=== PATIENT | female | born 1985 | race Caucasian/White ===

== ENCOUNTER 2021-04-24 21:34 | Emergency (ER) | payer MEDICAID, SELFPAY ==
[2021-04-24 21:34] VITALS: BP 130/84; PULSE 85; RESP 22; TEMP 36.9; BMI 24.8
== END 2021-04-24 22:10 | disposition left against medical advice (07) ==
LOC: ED 22:18
PROVIDERS: PCP Family Medicine
DX: R11.2 Nausea with vomiting, unspecified (principal); Z53.21 Procedure and treatment not carried out due to patient leaving prior to being seen by health care provider

== ENCOUNTER 2021-04-26 19:33 | Emergency (ER) | payer MEDICAID, SELFPAY ==
[2021-04-26 19:34] VITALS: BP 99/75; PULSE 75; RESP 16; TEMP 36.6; O2SAT 100; BMI 25.0
[2021-04-26 20:13] LABS: Internal QC Validated? YES +Cl - CLEAR BKGD; Pregnancy, Serum, hCG Quali. NEGATIVE Negative
[2021-04-26 20:15] LABS: Anion Gap 6 (5-15); BUN 12 mg/dL (7-18); BUN/Creat Ratio 20.5 RATIO (10-20); Calcium,Total 8.9 mg/dL (8.5-10.1); Chloride 104 mmol/L (98-107); Creatinine, Serum 0.58 mg/dL (0.55-1.02); EST Glomerular Filtration Rate 123 mL/min (>60); Est Glom Filt Rate - Afr Amer 148 mL/min (>60); Estimated Creatinine Clearance 123.12 ml/min; Glucose 114 mg/dL (74-106); Potassium 3.8 mmol/L (3.5-5.1); Sodium Level 141 mmol/L (136-145)
[2021-04-26 20:20] LABS: Absolute Lymphocyte Count 1.12 X10^3/uL (0.83-4.51); Absolute Neutrophil Count 2.1 X10^3/uL (2.0-7.7); Basophil# 0.02 X10^3/uL; Basophil% 0.5 % (0-1); Eosinophil# 0.15 X10^3/uL; Eosinophils% 3.8 % (0-5); Hematocrit 35.3 % (37-47); Hemoglobin 11.5 g/dL (12.0-15.0); Lymphocyte # 1.12 X10^3/ul (0.83-4.51); Lymphocyte % 28.4 % (19-41); Mean Corp Hgb Conc 32.6 g/dL (32-36); Mean Corpuscular Hgb 31.3 pg (27.0-32.0); Mean Corpuscular Volume 96.2 fL (81-99); Mean Platelet Vol. 10.1 fl (6.2-12.0); Monocyte# 0.54 X10^3/uL; Monocyte% 13.7 % (0-10); NRBC Flagged by Analyzer 0 % (0-5); Neutrophil % 53.3 % (47-70); Platelet Count 218 K/mm3 (150-450); RBC Distribution Width CV 12.3 % (11.6-14.6); RBC Distribution Width SD 43.9 fl (35.1-43.9); Red Blood Count 3.67 M/mm3 (4.2-5.4); White Blood Count 3.9 K/mm3 (4.4-11.0)
[2021-04-26 20:24] LABS: Bacteria 0 SEEN /hpf (None Seen); Red Blood Cells-Urine 0 SEEN /hpf (0-5)
[2021-04-26 20:25] LABS: Color, Urine Yellow (Yellow); Glucose, Dipstick Normal (Normal); Ketone-Dipstick Negative (Negative); Leukocyte Esterase-Dipstick 25 /ul (Negative); Nitrite-Dipstick Negative (Negative); Occult Blood-Urine 10 /ul (Negative); Protein-Dipstick 15 mg/dl (Negative); Urine Bilirubin Dipstick Negative (Negative); Urine Clarity Clear (Clear); Urine Urobilinogen Normal (Normal)
[2021-04-26 20:38] LABS: Calcium Oxalate Crystals Ur RARE /hpf (<or=2+); Mucous, Urine 3+ /hpf (<or=2+); Squamous Epithelial Cells - UA 5-10 SEEN /hpf (5-10); White Blood Cells 0-5 SEEN /hpf (0-5)
--- NOTE | 2021-04-26 21:32 | CT_ITS ---
HISTORY: RLQ pain TECHNIQUE: Multiple axial images were obtained of the abdomen and pelvis without oral or IV contrast. Coronal and sagittal reformats obtained. A radiation dose optimization technique was used for this scan. COMPARISON: None FINDINGS: # of images incl. paperwork: [id number] LUNG BASES: Unremarkable. LIVER T BILIARY TRACT: Unremarkable gallbladder. No acute hepatic finding. ADRENAL GLANDS: Unremarkable. SPLEEN: Unremarkable. PANCREAS: Unremarkable. KIDNEYS/URETERS/BLADDER: No nephrolithiasis, hydronephrosis or perinephric inflammation. Unremarkable ureters and bladder. LYMPH NODES: No suspicious adenopathy. STOMACH, SMALL AND LARGE BOWEL: No acute gastric finding. No small bowel obstruction or gross wall thickening. Normal appendix. Mild pericolonic inflammatory stranding along the ascending and transverse colon. ASCITES/FREE AIR: No significant free fluid in the dependent pelvis. No free air. AORTA: Unremarkable. PELVIS: Unremarkable uterus. No evidence of adnexal mass. MUSCULOSKELETAL: No acute osseous finding. Fat proliferation within the umbilicus. CT/Abdomen/Pelvis without Cont IMPRESSION: Inflammatory stranding along the ascending and transverse colon concerning for mild infectious or inflammatory colitis. Normal appendix. Individualized dose optimization techniques were used for this CT. at 2307 Reported and signed by: Moris Chavez MD Electronically Signed: Moris Chavez MD at 23:06 EDT Tel , Service support ,
[2021-04-26 21:43] VITALS: BP 134/69; PULSE 71; RESP 16; TEMP 36.7; O2SAT 98
[2021-04-26] MEDS: 0.9% Normal Saline 1,000 ML 1000 ML IV (21:44)
[2021-04-26 22:06] LABS: AST(SGOT) 10 U/L (15-37); Alanine Aminotransfer ALT/SGPT 28 U/L (13-56); Alkaline Phosphatase 64 U/L (45-117); Bilirubin, Direct 0.08 mg/dL (0.00-0.30); Globulin 3.8 g/dL (2.2-4.2); Lipase 95 U/L (73-393); Protein, Total 6.8 g/dL (6.4-8.2)
--- NOTE | 2021-04-26 22:15 | EDS_ITS ---
HPI HPI - GI History of Present Illness Chief Complaint: Abd Pain Informant: patient Narrative Narrative: Patient sent from urgent care for evaluation right lower quadrant pain which started today. Patient however reports vomiting diarrhea started 2 days ago. She has multiple bouts of diarrhea. She reports mild headache. Denies cough or congestion. Denies loss of taste or smell. Denies urinary symptoms. States did have back aches during this time. She is not Covid vaccinated. Denies any sick contacts. States she had upper abdominal pain with symptoms started 2 days ago. However today pain into the right lower quadrant. Last menstrual period a week ago. Denies any past medical history. Denies any surgical history. She was sent here to rule out appendicitis. Reports was given nausea medicines and a stomach medicine at the facility which has calmed down nausea symptoms. PFSH PFSH Home Medications amoxicillin-pot clavulanate [Augmentin] 1 tab PO BID #20 tab 04/26/21 [Rx Last Taken Unknown] ondansetron 4 mg PO Q6H PRN #10 tab 04/26/21 [Rx Last Taken Unknown] Allergy/AdvReac Type Severity Reaction Status Date / Time No Known Allergies Allergy Verified 04/26/21 19:35 Social History Smoking Status: Current every day smoker tobacco type: cigarettes ROS ROS ED Constitutional Constitutional ED: Denies chills, fever(s) or sweats Eyes Eyes: Denies change in vision ENT ENT ED: Denies dysphagia or sore throat Cardiovascular Cardiovascular: Denies chest pain, leg edema, palpitations or racing heartbeat Respiratory/Chest Respiratory/Chest: Denies cough, dyspnea or dyspnea on exertion Gastrointestinal Gastrointestinal: Reports abdominal pain, diarrhea, nausea and vomiting Genitourinary Genitourinary ED: Denies dysuria, hematuria or urinary frequency Musculoskeletal Musculoskeletal: Denies back pain, extremity pain or neck pain Integumentary Denies rash or wounds Neurologic Neurologic: Reports headache(s); Denies paresthesias or weakness EXAM Physical Exam Const Vital Signs: 04/26/21 19:34 04/26/21 21:43 Temperature 97.8 F 98.1 F Temperature Source Temporal Oral Pulse Rate 75 71 Respiratory Rate 16 16 Blood Pressure 99/75 134/69 H Blood Pressure Mean 83 90 Pulse Ox 100 98 Oxygen Delivery Method Room Air Room Air Positive well nourished and well developed General Appearance ED: well developed and NAD HEENT Reports moist mucous membranes normocephalic and atraumatic Eyes PERRL, EOMs intact bilaterally and conjunctivae normal General Eye ED: Yes normal appearance of both eyes Neck no lymphadenopathy and supple Neck Narrative: No meningismus General: Negative for tenderness Chest Wall Chest: Negative for tenderness Resp normal respiratory effort and normal air movement Effort and Inspection: symmetric chest movement; Negative for respiratory distress Cardio regular rate, regular rhythm and no murmurs Peripheral Pulses: pulses 2+ throughout GI normal to inspection, nondistended, normoactive bowel sounds GI Narrative: Right lower quadrant tenderness on exam. Negative Rovsing's. Palpation: Negative for guarding or rebound tenderness present Back/Spine no CVA tenderness and no thoracic nor lumbar tenderness Extremity normal to inspection General Extremety ED: Negative for edema or tenderness General Extremity: Negative for edema Neuro oriented x3 and no sensory deficits noted Sensorium / Orientation: awake and alert Skin no rashes or lesions noted and no wounds MDM MDM MDM Narrative Medical decision making narrative: Patient presents with abdominal pain vomiting diarrhea. Vomiting nausea subsided. No diarrhea in the last 6 hours. No recent antibiotics. Covid testing due to diarrhea with mild headache and myalgias was negative. She had right lower quadrant tenderness. Abdominal labs are all normal. hCG negative. CT scan notes stranding of the ascending and transverse colon concerns for infectious versus inflammatory findings. Normal appendix. She does not know of any family history of Crohn's disease or ulcerative colitis. With her diarrhea will treat for infectious. Augmentin started. Prescription sent to her pharmacy along with antimedics. She will use Tylenol as needed. Signs and symptom discussed return. She is given GI for follow-up as an outpatient. All questions were answered. Lab Data Attestation: I reviewed the patient's lab results. Labs: Laboratory Results - last 24 hr 04/26/21 04/26/21 04/26/21 18:53 19:53 19:53 WBC 3.9 L RBC 3.67 L Hgb 11.5 L Hct 35.3 L MCV 96.2 MCH 31.3 MCHC 32.6 RDW Std Deviation 43.9 RDW Coeff of Dileep 12.3 Plt Count 218 MPV 10.1 Immature Gran % (Auto) 0.300 Neut % (Auto) 53.3 Lymph % (Auto) 28.4 [place] % (Auto) 13.7 H Eos % (Auto) 3.8 Baso % (Auto) 0.5 Absolute Neuts (auto) 2.1 Absolute Lymphs (auto) 1.12 Nucleated RBC % 0 Sodium 141 Potassium 3.8 Chloride 104 Carbon Dioxide 31.0 Anion Gap 6 BUN 12 Creatinine 0.58 Estim Creat Clear Calc 123.12 Est GFR (MDRD) Af Amer 148 Est GFR (MDRD) Non-Af 123 BUN/Creatinine Ratio 20.5 H Glucose 114 H Calcium 8.9 Total Bilirubin 0.10 L Direct Bilirubin 0.08 AST 10 L ALT 28 Alkaline Phosphatase 64 Total Protein 6.8 Albumin 3.0 L Globulin 3.8 Lipase 95 Serum , Qual Urine Color Urine Clarity Urine pH Ur Specific [place] Urine Protein Urine Glucose (UA) Urine Ketones Urine Occult Blood Urine Nitrite Urine Bilirubin Urine Urobilinogen Ur Leukocyte Esterase Urine RBC Urine WBC Ur Squamous Epith Cells Calcium Oxalate Crystal Urine Bacteria Urine Mucus 04/26/21 04/26/21 19:53 20:19 WBC RBC Hgb Hct MCV MCH MCHC RDW Std Deviation RDW Coeff of Dileep Plt Count MPV Immature Gran % (Auto) Neut % (Auto) Lymph % (Auto) [place] % (Auto) Eos % (Auto) Baso % (Auto) Absolute Neuts (auto) Absolute Lymphs (auto) Nucleated RBC % Sodium Potassium Chloride Carbon Dioxide Anion Gap BUN Creatinine Estim Creat Clear Calc Est GFR (MDRD) Af Amer Est GFR (MDRD) Non-Af BUN/Creatinine Ratio Glucose Calcium Total Bilirubin Direct Bilirubin AST ALT Alkaline Phosphatase Total Protein Albumin Globulin Lipase Serum , Qual NEGATIVE Urine Color Yellow Urine Clarity Clear Urine pH 6.0 Ur Specific [place] 1.020 Urine Protein 15 H Urine Glucose (UA) Normal Urine Ketones Negative Urine Occult Blood 10 H Urine Nitrite Negative Urine Bilirubin Negative Urine Urobilinogen Normal Ur Leukocyte Esterase 25 H Urine RBC 0 SEEN Urine WBC 0-5 SEEN Ur Squamous Epith Cells 5-10 SEEN Calcium Oxalate Crystal RARE Urine Bacteria 0 SEEN Urine Mucus 3+ Radiography Diagnostic Testing: Radiology Impression Abdomen/Pelvis CT 04/26/21 21:32 IMPRESSION: Inflammatory stranding along the ascending and transverse colon concerning for mild infectious or inflammatory colitis. Normal appendix. Individualized dose optimization techniques were used for this CT. at 2307 Reported and signed by: Moris Chavez MD Electronically Signed: Moirs Chavez MD at 23:06 EDT Tel , Service support , Discharge Plan Triage Chief Complaint: Abd Pain ED Provider: Keo Pandya Dx/Rx/DC Orders Clinical Impression: Colitis, Diarrhea, Abdominal pain Instructions: Abdominal Pain, ED Understanding Colitis Prescriptions: New ondansetron 4 mg tablet,disintegrating 4 mg PO Q6H PRN (Reason: nausea and vomiting) Qty: 10 RF: 0 amoxicillin-pot clavulanate [Augmentin] 875-125 mg tablet 1 tab PO BID Qty: 20 RF: 0 Primary Care Provider: Zay Le Referrals: Friend,DO Sanket [STAFF PHYSICIAN] - 1 Week Zay Le MD [Primary Care Provider] - Disposition Disposition: Home, Self Care
[2021-04-26] MEDS: Amox/Clavulanate 875 MG Tablet PO (23:26)
[2021-04-26 23:27] VITALS: BP 106/48; PULSE 60; RESP 16; O2SAT 99
== END 2021-04-26 23:30 | disposition home or self-care (01) ==
LOC: ED 23:55
PROVIDERS: Emergency Provider Emergency Medicine; PCP Family Medicine
DX: K52.9 Noninfective gastroenteritis and colitis, unspecified (principal); R10.31 Right lower quadrant pain; Z20.822 Contact with and (suspected) exposure to COVID-19; R51.9 Headache, unspecified; F17.210 Nicotine dependence, cigarettes, uncomplicated
CPT/HCPCS: 74176; 80048; 80076; 81001; 83690; 84703; 85025; 87426; 96360; 96361; 99284; J7030

== ENCOUNTER 2021-04-29 11:37 | Emergency (ER) | payer MEDICAID, SELFPAY ==
[2021-04-29 11:38] VITALS: BP 127/78; PULSE 60; RESP 18; TEMP 36.4; O2SAT 100; BMI 25.0
--- NOTE | 2021-04-29 11:54 | EX.ED.DYSGE1 ---
HPI History of Present Illness Chief Complaint: Dizziness Informant: patient Narrative Narrative: Patient sudden onset of dizziness and feeling drunk. Patient at work when symptoms started. 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 Worsens with head movement. Denies any tinnitus or sinus congestion. Of note was seen 3 days ago by myself for abdominal pain diagnosed with colitis. She is on Augmentin. She has a GI appointment in 1 week. Symptoms have been improving there. No urinary symptoms. Last menstrual period on the 6. Denies any past medical history. Denies any allergies. Prior similar symptoms: No PFSH PFSH Home Medications amoxicillin-pot clavulanate [Augmentin] 1 tab PO BID #20 tab 04/26/21 [Rx Last Taken Unknown] ondansetron 4 mg PO Q6H PRN #10 tab 04/26/21 [Rx Last Taken Unknown] metoclopramide HCl [Reglan] 10 mg PO Q6H PRN #20 tab 04/29/21 [Rx Last Taken Unknown] Allergy/AdvReac Type Severity Reaction Status Date / Time No Known Allergies Allergy Verified 04/29/21 11:39 Social History Smoking Status: Current every day smoker tobacco type: cigarettes ROS ROS ED Constitutional Constitutional ED: Denies chills, fever(s) or sweats Eyes Eyes: Denies change in vision ENT ENT ED: Denies dysphagia or sore throat Cardiovascular Cardiovascular: Denies chest pain, leg edema, palpitations or racing heartbeat Respiratory/Chest Respiratory/Chest: Denies cough, dyspnea or dyspnea on exertion Gastrointestinal Gastrointestinal: Denies abdominal pain, diarrhea, nausea or vomiting Genitourinary Genitourinary ED: Denies dysuria, hematuria or urinary frequency Musculoskeletal Musculoskeletal: Denies back pain, extremity pain or neck pain Integumentary Denies rash or wounds Neurologic Neurologic: Reports other Details: Dizziness ; Denies headache(s), paresthesias or weakness EXAM Physical Exam Const Vital Signs: 04/29/21 11:38 04/29/21 12:00 04/29/21 15:30 Temperature 97.6 F L Temperature Source Temporal Pulse Rate 60 76 Respiratory Rate 18 17 Respiratory Effort Normal Non-Labored Blood Pressure 127/78 H Blood Pressure Mean 94 Pulse Ox 100 98 Oxygen Delivery Method Room Air Positive well nourished and well developed General Appearance ED: well developed and NAD HEENT Reports TM's clear and moist mucous membranes HEENT Narrative: No nystagmus normocephalic and atraumatic Tympanic Membrane ED: Yes TM's clear Eyes PERRL, EOMs intact bilaterally and conjunctivae normal General Eye ED: Yes normal appearance of both eyes Neck no lymphadenopathy and supple General: Negative for tenderness Chest Wall Chest: Negative for tenderness Resp normal respiratory effort and normal air movement Effort and Inspection: symmetric chest movement; Negative for respiratory distress Cardio regular rate, regular rhythm and no murmurs Peripheral Pulses: pulses 2+ throughout GI normal to inspection, nondistended, normoactive bowel sounds and non-tender Palpation: Negative for guarding or rebound tenderness present Back/Spine no CVA tenderness and no thoracic nor lumbar tenderness Extremity normal to inspection General Extremety ED: Negative for edema or tenderness General Extremity: Negative for edema Neuro oriented x3 and no sensory deficits noted Neuro Narrative: Cristian-Hallpike negative bilaterally. Sensorium / Orientation: awake and alert Skin no rashes or lesions noted and no wounds MDM MDM MDM Narrative Medical decision making narrative: Patient presenting with vertigo symptoms. There is no focal deficits. Given IV fluids labs were checked were all stable. She is given Reglan IV. On reevaluation improving symptoms. She is able to ambulate with no recurrent symptoms. Prescription for Reglan to use as needed. Signs and symptom discussed return. Discussed if recurrent symptoms, will likely need further work-up as an outpatient including rule out schwannomas with MRI studies. Patient understands. All questions were answered. Patient is being discharged under pandemic conditions under declared global, national and state disaster activation, with limited medical resources. Patient and community understands this. Results discussed in layman's terms to the patient satisfaction. All questions answered in layman's terms. Patient understands importance of follow-up care as directed. Patient has been instructed to return to the ED immediately if new symptoms, problems, or questions occur. We mutually agree with the plan of disposition. The patient understand that they may call or return with any questions or concerns at any time. Lab Data Attestation: I reviewed the patient's lab results. Labs: Laboratory Results - last 24 hr 04/29/21 04/29/21 04/29/21 11:54 11:54 12:07 WBC 7.2 RBC 3.91 L Hgb 12.2 Hct 36.3 L MCV 92.8 MCH 31.2 MCHC 33.6 RDW Std Deviation 42.8 RDW Coeff of Dileep 12.4 Plt Count 338 MPV 9.5 Immature Gran % (Auto) 1.100 H Neut % (Auto) 57.3 Lymph % (Auto) 31.7 [place] % (Auto) 6.8 Eos % (Auto) 2.4 Baso % (Auto) 0.7 Absolute Neuts (auto) 4.1 Absolute Lymphs (auto) 2.27 Nucleated RBC % 0 Reactive Lymphocytes RARE Sodium 141 Potassium 3.5 Chloride 106 Carbon Dioxide 26.0 Anion Gap 9 BUN 9 Creatinine 0.63 Estim Creat Clear Calc 113.34 Est GFR (MDRD) Af Amer 136 Est GFR (MDRD) Non-Af 112 BUN/Creatinine Ratio 14.3 Glucose 103 Calcium 9.6 Serum , Qual NEGATIVE Discharge Plan Triage Chief Complaint: Dizziness ED Provider: Keo Pandya Dx/Rx/DC Orders Clinical Impression: Acute onset of severe vertigo Instructions: ED Vertigo, Unspecified Prescriptions: New metoclopramide HCl [Reglan] 10 mg tablet 10 mg PO Q6H PRN (Reason: dizziness or vertigo) Qty: 20 RF: 0 No Action ondansetron 4 mg tablet,disintegrating 4 mg PO Q6H PRN (Reason: nausea and vomiting) Qty: 10 RF: 0 amoxicillin-pot clavulanate [Augmentin] 875-125 mg tablet 1 tab PO BID Qty: 20 RF: 0 Stand Alone Forms: ED Work / School Excuse Primary Care Provider: Zay Le Referrals: Zay Le MD [Primary Care Provider] - 5-7 Days Disposition Disposition: Home, Self Care Discharge Date/Time: 04/29/21 15:31
[2021-04-29] MEDS: Metoclopramide 10 MG/2 ML Vial IV (12:06)
[2021-04-29] MEDS: 0.9% Normal Saline 1,000 ML 1000 ML IV (12:06)
[2021-04-29 12:14] LABS: Absolute Lymphocyte Count 2.27 X10^3/uL (0.83-4.51); Absolute Neutrophil Count 4.1 X10^3/uL (2.0-7.7); Basophil# 0.05 X10^3/uL; Basophil% 0.7 % (0-1); Eosinophil# 0.17 X10^3/uL; Eosinophils% 2.4 % (0-5); Hematocrit 36.3 % (37-47); Hemoglobin 12.2 g/dL (12.0-15.0); Lymphocyte # 2.27 X10^3/ul (0.83-4.51); Lymphocyte % 31.7 % (19-41); Mean Corp Hgb Conc 33.6 g/dL (32-36); Mean Corpuscular Hgb 31.2 pg (27.0-32.0); Mean Corpuscular Volume 92.8 fL (81-99); Mean Platelet Vol. 9.5 fl (6.2-12.0); Monocyte# 0.49 X10^3/uL; Monocyte% 6.8 % (0-10); NRBC Flagged by Analyzer 0 % (0-5); Neutrophil % 57.3 % (47-70); POSITIVE MORPHOLOGY YES; Platelet Count 338 K/mm3 (150-450); RBC Distribution Width CV 12.4 % (11.6-14.6); RBC Distribution Width SD 42.8 fl (35.1-43.9); Red Blood Count 3.91 M/mm3 (4.2-5.4); White Blood Count 7.2 K/mm3 (4.4-11.0)
[2021-04-29 12:15] LABS: Differential Indicated SCAN CRITERIA MET
[2021-04-29 12:18] LABS: Anion Gap 9 (5-15); BUN 9 mg/dL (7-18); BUN/Creat Ratio 14.3 RATIO (10-20); Calcium,Total 9.6 mg/dL (8.5-10.1); Chloride 106 mmol/L (98-107); Creatinine, Serum 0.63 mg/dL (0.55-1.02); EST Glomerular Filtration Rate 112 mL/min (>60); Est Glom Filt Rate - Afr Amer 136 mL/min (>60); Estimated Creatinine Clearance 113.34 ml/min; Glucose 103 mg/dL (74-106); Potassium 3.5 mmol/L (3.5-5.1); Sodium Level 141 mmol/L (136-145)
[2021-04-29 12:45] LABS: Reactive Lymphocyte RARE
[2021-04-29 13:03] LABS: Internal QC Validated? YES +Cl - CLEAR BKGD; Pregnancy, Serum, hCG Quali. NEGATIVE Negative
[2021-04-29 15:30] VITALS: PULSE 76; RESP 17; O2SAT 98
== END 2021-04-29 15:31 | disposition home or self-care (01) ==
PROVIDERS: Emergency Provider Emergency Medicine; PCP Family Medicine
DX: R42 Dizziness and giddiness (principal); F17.210 Nicotine dependence, cigarettes, uncomplicated; Z79.899 Other long term (current) drug therapy
CPT/HCPCS: 80048; 84703; 85025; 96361; 96374; 99282; J7030; A4216

== ENCOUNTER → 2021-05-05 08:50 | Outpatient (CLI) | payer MEDICAID, SELFPAY ==
[2021-05-05 09:33] LABS: Erythrocyte Sedimentation Rate 11 mm/hr (0-30)
[2021-05-05 09:46] LABS: CRP 9.92 mg/L (0.0-3.0)
== END ==
PROVIDERS: PCP Family Medicine; Referring Provider Internal Medicine Gastroenterology; Visit Provider Internal Medicine Gastroenterology
DX: R19.7 Diarrhea, unspecified (principal)
CPT/HCPCS: 36415; 85652; 86140

== ENCOUNTER → 2021-05-07 | Outpatient (CLI) | payer MEDICAID, SELFPAY | END | disposition home or self-care (01) | LOC: LABSPEC 15:54 | PROVIDERS: PCP Family Medicine; Referring Provider Internal Medicine Gastroenterology; Visit Provider Internal Medicine Gastroenterology | DX: R19.7 Diarrhea, unspecified (principal) | CPT/HCPCS: 87493 ==

== ENCOUNTER 2021-06-02 09:07 | Day surgery (SDC) | payer MEDICAID, SELFPAY ==
[2021-06-02] VITALS (7 sets, daily range): BP systolic 85–101; BP diastolic 40–58; PULSE 55–67; RESP 14–18; TEMP 36.1–36.7; O2SAT 99–100; BMI 24.3
[2021-06-02 09:41] LABS: Internal QC Validated? YES +Cl - CLEAR BKGD; Pregnancy, Urine Negative Negative
[2021-06-02] MEDS: Lactated Ringers 1,000 ML 100 ML IV (09:51)
--- NOTE | 2021-06-02 10:05 | PCM.HP.BLA ---
History and Physical Date of Admission: 06/02/21 Intake Visit Reasons: COLITIS, GASTRITIS Allergies No Known Allergies Allergy (Verified 05/05/21 07:30) Medications amoxicillin-pot clavulanate [Augmentin] 1 tab PO BID #20 tab 04/26/21 [Rx Confirmed 05/05/21] ondansetron 4 mg PO Q6H PRN #10 tab 04/26/21 [Rx Confirmed 05/05/21] metoclopramide HCl [Reglan] 10 mg PO Q6H PRN #20 tab 04/29/21 [Rx Confirmed 05/05/21] bisacodyl 5 mg tablet,delayed release 5 mg PO ONCE #4 tab 05/05/21 [Rx Confirmed 05/05/21] polyethylene glycol 3350 17 gram/dose oral powder 17 g PO Q10-15M #510 g 05/05/21 [Rx Confirmed 05/05/21] Post menopausal: No Patient : No Nurse's Note: She first experienced abdominal pain with nausea, vomiting and diarrhea 04/22/21. AFter three days she went to [place] ED on Monday, diagnosed with gastritis and presscribed famotidine in [facility]. Follow up with Dr. Le and he sent her to ED 04/26/[address] noted stranding of ascending and transverse colon. Started on antibiotic for possible GI infection versus colitis, zofran and referred to this office. Doing better this week. 25-30 lb weight loss in the last four months - got a new, more physical job. [facility] Medical History (Updated 05/05/21 @ 08:[address] Sanket Fitzgerald, DO) Diarrhea Social History Smoking Status: Current every day smoker tobacco type: cigarettes HPI HPI Details: CLINTON AGUILLON, is a 36 F who presents to the office today for regarding her recent ER visit. Patient developed a sudden onset of dizziness and feeling drunk. Patient at work when symptoms started. 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 Worsens with head movement. She first experienced abdominal pain with nausea, vomiting and diarrhea 04/22/21. AFter three days she went to [place] ED on Monday, diagnosed with gastritis and presscribed famotidine in [facility]. Follow up with Dr. Le and he sent her to ED 04/26/[address] noted stranding of ascending and transverse colon. Started on antibiotic for possible GI infection versus colitis, bautista and referred to this office. Doing better this week. She admits to 25-30 lb weight loss in the last four months - got a new, more physical job. Denies any tinnitus or sinus congestion. Of note was seen 3 days ago by myself for abdominal pain diagnosed with colitis. She is on Augmentin. She has a GI appointment in 1 week. Symptoms have been improving there. No urinary symptoms. Last menstrual period on the 6. Denies any past medical history. Denies any allergies. ROS Const Constitutional: Positive for fatigue, headache(s), weakness and weight change Eyes Eyes: Positive for blurry vision and irritation ENT ENT: Positive for ear or mastoid pain and headache(s) Gastro GI: Positive for abdominal pain, bloating, change in bowel habits, constipation, diarrhea, nausea/dyspepsia and vomiting Genitourinary-Female: Positive for urinary frequency and urinary urgency Musc Musculoskeletal: Positive for joint pain, back pain, muscle cramps, muscle weakness, numbness, stiffness, tingling, sciatica and leg pain at night Skin Skin: Positive for dry skin and itchy eyes Neuro Neurology: Positive for weakness, headache(s), numbness, tingling and other (Vertigo) Psych Psychiatric: Positive for anxiety, Positive for depression and Positive for paranoia Endo Endocrine: Positive for fatigue, increased urine leakage and weight change Aller/Imm Allergy/Immunologic: Positive for itchy eyes Zeferino/Lymp Hematologic/Lymphatic: Positive for easy bruising Exam Const General: cooperative and comfortable Nutritional Appearance: average body habitus and well nourished [facility] Head: normal to inspection Ears: hearing grossly normal bilaterally Nose: external nose normal Face and sinus: normal facial exam Mouth: oral mucosae normal Throat: posterior oropharynx normal Eyes General: appearance normal, both eyes and all related structures Neck Neck: normal visual inspection Chest Chest palpation & inspection: normal inspection of the chest and normal palpation of entire chest wall Resp Effort & Inspection: normal respiratory effort Auscultation: Bilateral: Clear to Auscultation Cardio Palpation: normal PMI Rate: regular rate Rhythm: regular rhythm GI Inspection: normal to inspection Auscultation: normal bowel sounds Percussion: normal to percussion Palpation: no hepatosplenomegaly Skin General: no rashes or lesions noted Neuro General: patient alert Extrem General: normal to inspection Psych Affect: normal affect Quality Reporting Tobacco Screening ([facility] 138) Smoking Status: Current every day smoker Assessment and Plan Assessment and Plan (1) Diarrhea: Status: Acute Orders: Orders: CRP Today Erythrocyte Sed Rate Today CDIFF (PCR) Today Medications: New: polyethylene glycol 3350 (Miralax) 17 grams PO Q10-15M 510 grams 0RF bisacodyl 5 mg PO ONCE 4 tabs 0RF Plan - Dr. Coles Friend, DO: We will get an ESR, CRP, stool studies for C. difficile and stool culture. We will also get a colonoscopy due to the findings on the CAT scan and the fact that she is not getting any better after antibiotic treatment. She was explained alternatives, risk, benefits including not withstanding bleeding, infection, sepsis, perforation, need for emergent surgery and . She will have an ASA of 1. We will also give her rectal suppositories. (2) Gastritis: Status: Acute Plan - Dr. Coles Friend, DO: Patient takes a lot of Aleve secondary to a very demanding job. She is possibly suffering from NSAID induced gastritis and possibly had partially treated H. pylori. I will give her a proton pump inhibitor and we will perform endoscopy to evaluate her upper GI tract.
--- NOTE | 2021-06-02 10:15 | EGD_PTH ---
PATIENT: CLINTON AGUILLON LOC: [facility] U#:[id number] AGE/SX: 36/F ROOM: RE06/02/[address]: Dr. Sanket Fitzgerald DO : 1985 BED: DIS: 06/02/2021 SPEC #: [id number] RECD: 06/02/21 12:34 STATUS: DIANDRA LEVI #: [id number] ROBERTO: 06/02/21 10:[address]: Sanket Fitzgerald DEPT: SURGICAL PATHOLOGY RECD BY: Gloria Green ENTERED: 06/02/21 13:11 SP TYPE: EGD BIOPSY OT DR: Dr. Zay Le MD Tissues: A - Duodenum, NOS B - Esophagus, NOS C - Esophagus, NOS D - Ileum, NOS E - COLON BIOPSY Procedures: Special Stain Group II Surgery Specimen Level IV Alcian Blue/PAS (control) HEADER OPERATION: Colonoscopy, EGD ([facility]) PRE-OP DIAGNOSIS: Diarrhea, gastritis TISSUE SUBMITTED: A ? Biopsy of duodenum, B ? Distal esophagus, C ? Papilloma of esophagus, D ? Biopsy of terminal ileum, E ? Random colon biopsies MICROSCOPIC DIAGNOSIS A. Duodenum, biopsy: No pathologic change. B. Distal esophagus, biopsy: Gastroesophageal junctional mucosa with chronic inflammation. Changes of reflux. No evidence of goblet cell metaplasia. See comment. C. Papilloma of esophagus, biopsy Consistent with squamous papilloma. D. Terminal ileum, biopsy: No pathologic change. E. Colon, random biopsy: No pathologic change. AM:jennifer 06/03/2021 COMMENT B. Alcian blue/PAS stain with matched control supports the above diagnosis. MICROSCOPIC DESCRIPTION Slides are reviewed. GROSS DESCRIPTION A - Received in fixative is one container labeled with the patient's name and designated duodenum biopsy. The specimen consists of multiple irregular fragments of light lai soft tissue that in aggregate measure 1 x 0.5 x 0.1 cm. The specimen is totally submitted in one cassette. B - Received in fixative is one container labeled with the patient's name and designated distal esophagus biopsy. The specimen consists of two irregular fragments of light lai soft tissue that in aggregate measure 0.5 x 0.5 x 0.1 cm. The specimen is totally submitted in one cassette. C - Received in fixative is one container labeled with the patient's name and designated papilloma of esophagus biopsy. The specimen consists of multiple irregular fragments of light lai soft tissue that in aggregate measure 0.5 x 0.3 x 0.1 cm. The specimen is totally submitted in one cassette. D - Received in fixative is one container labeled with the patient's name and designated terminal ileum biopsy. The specimen consists of one irregular fragment of light lai soft tissue that measures 0.3 x 0.2 x 0.1 cm. The specimen is totally submitted in one cassette. E - Received in fixative is one container labeled with the patient's name and designated random colon biopsy. The specimen consists of multiple irregular fragments of light lai soft tissue that in aggregate measure 1 x 0.5 x 0.1 cm. The specimen is totally submitted in one cassette. / AM:jennifer 06/02/21 TC:3 CPT: 03763 x5, 91021
--- NOTE | 2021-06-02 11:39 | OP.EGD_ITS ---
Patient Name: Basia Mares Procedure Date: 06/02/2021 10:55 AM Date of : 1985 Age: 36 Procedure: Upper GI endoscopy Indications: Generalized abdominal pain Providers: Sanket Fitzgerald DO Referring MD: Sanket Fitzgerald DO Medicines: Propofol per Anesthesia Patient Profile: This is a 36 year old female. Refer to note in patient chart for documentation of history and physical. Patient has symptoms of acute abdominal cramping, acute abdominal distention and acute global abdominal pain. Complications: No immediate complications. Procedure: Pre-Anesthesia Assessment: - Prior to the procedure, a History and Physical was performed, and patient medications and allergies were reviewed. The patient is competent. The risks and benefits of the procedure and the sedation options and risks were discussed with the patient. All questions were answered and informed consent was obtained. Patient identification and proposed procedure were verified. Mental Status Examination: alert and oriented. Airway Examination: normal oropharyngeal airway and neck mobility. Respiratory Examination: clear to auscultation. CV Examination: normal. Prophylactic Antibiotics: The patient does not require prophylactic antibiotics. Prior Anticoagulants: The patient has taken no previous anticoagulant or antiplatelet agents. ASA Grade Assessment: II - A patient with mild systemic disease. After reviewing the risks and benefits, the patient was deemed in satisfactory condition to undergo the procedure. The anesthesia plan was to use moderate sedation / analgesia (conscious sedation). Immediately prior to administration of medications, the patient was re-assessed for adequacy to receive sedatives. The heart rate, respiratory rate, oxygen saturations, blood pressure, adequacy of pulmonary ventilation, and response to care were monitored throughout the procedure. The physical status of the patient was re-assessed after the procedure. After obtaining informed consent, the endoscope was passed under direct vision. Throughout the procedure, the patient's blood pressure, pulse, and oxygen saturations were monitored continuously. The Endoscope was introduced through the mouth, and advanced to the second part of duodenum. The upper GI endoscopy was accomplished without difficulty. The patient tolerated the procedure well. Moderate Sedation: Moderate (conscious) sedation was personally administered by an anesthesia professional. The following parameters were monitored: oxygen saturation, heart rate, blood pressure, and response to care. Total physician intraservice time was 15 minutes. Scope In: 11:01:29 AM Scope Out: 11:09:59 AM Total Procedure Duration Time 0 hours 8 minutes 30 seconds Findings: LA Grade A (one or more mucosal breaks less than 5 mm, not extending between tops of 2 mucosal folds) esophagitis with no bleeding was found 34 to 35 cm from the incisors. Biopsies were taken with a cold forceps for histology. Verification of patient identification for the specimen was done. Estimated blood loss was minimal. A single 6 mm polyp was found 34 to 35 cm from the incisors. The polyp was removed with a jumbo cold forceps. Resection and retrieval were complete. Verification of patient identification for the specimen was done. Estimated blood loss was minimal. A medium sized non-obstructing mucosal lesion was found on the right arytenoid. Impression: - LA Grade A reflux esophagitis. Biopsied. - Esophageal polyp(s) were found. Resected and retrieved. - A mucosal lesion was found on the right arytenoid. This lesion is doubtfully malignant. - Normal stomach. - Acute duodenitis. Biopsied. Recommendation: - Discharge patient to home. - Resume previous diet. - Continue present medications. - Await pathology results. - Repeat upper endoscopy in 1 year for surveillance. - Return to GI office in 2 weeks. Procedure Code(s): --- Professional --- 99632, Esophagogastroduodenoscopy, flexible, transoral; with biopsy, single or multiple CPT copyright 2017 [employer]. All rights reserved. The codes documented in this report are preliminary and upon optometrist president/practice owner review may be revised to meet current compliance requirements. Sanket Fitzgerald DO 06/02/2021 11:39:30 AM This report has been signed electronically. Number of Addenda: 1 Note Initiated On: 06/02/2021 10:55 AM Addendum Number: 1 Addendum Date: 04/14/2022 4:38:40 PM MAC was used instead of moderate sedation for this patient. Sanket Fitzgerald DO 04/14/2022 4:38:45 PM This report has been signed electronically.
--- NOTE | 2021-06-02 11:40 | OP.CCLET_ITS ---
04/14/2022 Zay Le Re : Upper GI endoscopy procedure for Basia Mares Dear Rey This procedure was performed on Wednesday, June 02, 2021. My impressions and recommendations are as follows: Impressions : - LA Grade A reflux esophagitis. Biopsied. - Esophageal polyp(s) were found. Resected and retrieved. - A mucosal lesion was found on the right arytenoid. This lesion is doubtfully malignant. - Normal stomach. - Acute duodenitis. Biopsied. Recommendations : - Discharge patient to home. - Resume previous diet. - Continue present medications. - Await pathology results. - Repeat upper endoscopy in 1 year for surveillance. - Return to GI office in 2 weeks. My findings are described in the full procedure note, which is enclosed. If I can be of further assistance, please feel free to contact me at . Sincerely, Sanket Fitzgerald, 06/02/2021 11:39:30 AM This report has been signed electronically.
--- NOTE | 2021-06-02 11:45 | OP.COLON_ITS ---
Patient Name: Basia Mares Procedure Date: 06/02/2021 11:10 AM Date of : 1985 Age: 36 Procedure: Colonoscopy Indications: Generalized abdominal pain, Clinically significant diarrhea of unexplained origin Providers: Sanket Fitzgerald DO Referring MD: Sanket Fitzgerald DO Medicines: Propofol per Anesthesia Patient Profile: This is a 36 year old female. Refer to note in patient chart for documentation of history and physical. Patient has symptoms of acute abdominal cramping, acute abdominal distention and acute global abdominal pain. Last Colonoscopy: none. The patient's first colonoscopy is today. Complications: No immediate complications. Procedure: Pre-Anesthesia Assessment: - Prior to the procedure, a History and Physical was performed, and patient medications and allergies were reviewed. The patient is competent. The risks and benefits of the procedure and the sedation options and risks were discussed with the patient. All questions were answered and informed consent was obtained. Patient identification and proposed procedure were verified. Mental Status Examination: alert and oriented. Airway Examination: normal oropharyngeal airway and neck mobility. Respiratory Examination: clear to auscultation. CV Examination: normal. Prophylactic Antibiotics: The patient does not require prophylactic antibiotics. Prior Anticoagulants: The patient has taken no previous anticoagulant or antiplatelet agents. ASA Grade Assessment: II - A patient with mild systemic disease. After reviewing the risks and benefits, the patient was deemed in satisfactory condition to undergo the procedure. The anesthesia plan was to use moderate sedation / analgesia (conscious sedation). Immediately prior to administration of medications, the patient was re-assessed for adequacy to receive sedatives. The heart rate, respiratory rate, oxygen saturations, blood pressure, adequacy of pulmonary ventilation, and response to care were monitored throughout the procedure. The physical status of the patient was re-assessed after the procedure. - Prior to the procedure, a History and Physical was performed, and patient medications and allergies were reviewed. The patient is competent. The risks and benefits of the procedure and the sedation options and risks were discussed with the patient. All questions were answered and informed consent was obtained. Patient identification and proposed procedure were verified by the physician in the pre-procedure area. Mental Status Examination: alert and oriented. Respiratory Examination: clear to auscultation. CV Examination: normal. Prophylactic Antibiotics: The patient does not require prophylactic antibiotics. Prior Anticoagulants: The patient has taken no previous anticoagulant or antiplatelet agents. ASA Grade Assessment: II - A patient with mild systemic disease. After reviewing the risks and benefits, the patient was deemed in satisfactory condition to undergo the procedure. The anesthesia plan was to use moderate sedation / analgesia (conscious sedation). Immediately prior to administration of medications, the patient was re-assessed for adequacy to receive sedatives. The heart rate, respiratory rate, oxygen saturations, blood pressure, adequacy of pulmonary ventilation, and response to care were monitored throughout the procedure. The physical status of the patient was re-assessed after the procedure. After I obtained informed consent, the scope was passed under direct vision. Throughout the procedure, the patient's blood pressure, pulse, and oxygen saturations were monitored continuously. The Colonoscope was introduced through the anus and advanced to the terminal ileum. The colonoscopy was performed without difficulty. The patient tolerated the procedure well. The quality of the bowel preparation was good. Moderate Sedation: Moderate (conscious) sedation was administered by the endoscopy nurse and supervised by the endoscopist. The patient's oxygen saturation, heart rate, blood pressure and response to care were monitored. Total physician intraservice time was 15 minutes. Scope In: 11:14:25 AM Scope Withdrawal Time 0 hours 9 minutes 46 seconds Scope Out: 11:33:03 AM Total Procedure Duration Time 0 hours 18 minutes 38 seconds Findings: The perianal and digital rectal examinations were normal. There was moderate spasm at the splenic flexure, at the hepatic flexure and in the ascending colon. A patchy area of the terminal ileum was congested. An area of mildly congested mucosa was found in the sigmoid colon and in the descending colon. This was biopsied with a cold forceps for histology. Verification of patient identification for the specimen was done. Estimated blood loss was minimal. poor rectal tone A few small-mouthed diverticula were found in the sigmoid colon. Impression: - Moderate colonic spasm consistent with irritable bowel syndrome. - Congested mucosa in the terminal ileum. - Congested mucosa in the sigmoid colon and in the descending colon. Biopsied. Recommendation: - Discharge patient to home. - Resume previous diet. - Continue present medications. - Await pathology results. - Repeat colonoscopy in 5 years for surveillance based on pathology results. - Return to GI office in 1 week. Procedure Code(s): --- Professional --- 77952, Colonoscopy, flexible; with biopsy, single or multiple G0500, Moderate sedation services provided by the same physician or other qualified health neurocritical care physician performing a gastrointestinal endoscopic service that sedation supports, requiring the presence of an independent trained observer to assist in the monitoring of the patient's level of consciousness and physiological status; initial 15 minutes of intra-service time; patient age 5 years or older (additional time may be reported with 06965, as appropriate) CPT copyright 2017 [employer]. All rights reserved. The codes documented in this report are preliminary and upon certification officer review may be revised to meet current compliance requirements. Sanket Fitzgerald DO 06/02/2021 11:44:33 AM This report has been signed electronically. Number of Addenda: 1 Note Initiated On: 06/02/2021 11:10 AM Addendum Number: 1 Addendum Date: 04/14/2022 4:38:54 PM MAC was used instead of moderate sedation for this patient. Sanket Fitzgerald DO 04/14/2022 4:39:01 PM This report has been signed electronically.
--- NOTE | 2021-06-02 11:45 | OP.CCLET_ITS ---
04/14/2022 Zay Le Re : Colonoscopy procedure for Basia Mares Dear Rey This procedure was performed on Wednesday, June 02, 2021. My impressions and recommendations are as follows: Impressions : - Moderate colonic spasm consistent with irritable bowel syndrome. - Congested mucosa in the terminal ileum. - Congested mucosa in the sigmoid colon and in the descending colon. Biopsied. Recommendations : - Discharge patient to home. - Resume previous diet. - Continue present medications. - Await pathology results. - Repeat colonoscopy in 5 years for surveillance based on pathology results. - Return to GI office in 1 week. My findings are described in the full procedure note, which is enclosed. If I can be of further assistance, please feel free to contact me at . Sincerely, Sanket Friend, 06/02/2021 11:44:33 AM This report has been signed electronically.
== END 2021-06-02 12:47 | disposition home or self-care (01) ==
LOC: EN 09:07 → AC 09:08
PROVIDERS: Anesthesiology; PCP Family Medicine; Referring Provider Family Medicine; Visit Provider Internal Medicine Gastroenterology
PROC: 0DJD8ZZ Inspection of Lower Intestinal Tract, Via Natural or Artificial Opening Endoscopic (ICD-10-PCS; CPT 45378; principal; 2021-06-02 10:10)
DX: K29.80 Duodenitis without bleeding (principal); D13.0 Benign neoplasm of esophagus; K21.00 Gastro-esophageal reflux disease with esophagitis, without bleeding; R10.84 Generalized abdominal pain; R19.7 Diarrhea, unspecified; R63.4 Abnormal weight loss; F41.9 Anxiety disorder, unspecified; F17.210 Nicotine dependence, cigarettes, uncomplicated; Z79.899 Other long term (current) drug therapy
CPT/HCPCS: 43239; 45380; 81025; 87493; 88305; 88313; J7120; J2405

== ENCOUNTER → 2021-06-07 | Outpatient (CLI) | payer MEDICAID, SELFPAY ==
[2021-06-08 22:06] LABS: Chlamydia By Nucleic Acid AMP Negative (Negative)
[2021-06-09 10:14] LABS: Gonococcus By Nucleic Acid AMP Negative (Negative)
[2021-06-10 09:00] LABS: HPV APTIMA, High Risk Negative (Negative)
== END | disposition home or self-care (01) ==
LOC: LABSPEC 10:45
PROVIDERS: PCP Family Medicine; Visit Provider Obstetrics & Gynecology
DX: Z12.4 Encounter for screening for malignant neoplasm of cervix (principal); Z11.3 Encounter for screening for infections with a predominantly sexual mode of transmission
CPT/HCPCS: 87491; 87591; 87624; 88175; G0145

== ENCOUNTER 2021-10-19 10:57 | Outpatient (CLI) | payer BC, MEDICAID, SELFPAY ==
[2021-10-19 12:12] LABS: NATERA MAILED SPECIMEN
== END 2021-10-19 23:59 | disposition home or self-care (01) ==
LOC: PAVLAB 10:59
PROVIDERS: PCP Family Medicine; Referring Provider Obstetrics & Gynecology; Visit Provider Obstetrics & Gynecology
DX: O09.521 Supervision of elderly multigravida, first trimester (principal); Z82.8 Family history of other disabilities and chronic diseases leading to disablement, not elsewhere classified
CPT/HCPCS: 36415

== ENCOUNTER 2021-10-26 15:25 | Outpatient (CLI) | payer BC, MEDICAID, SELFPAY ==
[2021-10-26 15:41] LABS: Absolute Neutrophil Count 6.6 X10^3/uL (2.0-7.7); Basophil# 0.03 X10^3/uL; Basophil% 0.3 % (0-1); Eosinophil# 0.11 X10^3/uL; Eosinophils% 1.2 % (0-5); Hematocrit 33.6 % (37-47); Hemoglobin 11.7 g/dL (12.0-15.0); Lymphocyte % 19.8 % (19-41); Mean Corp Hgb Conc 34.8 g/dL (32-36); Mean Corpuscular Hgb 32.6 pg (27.0-32.0); Mean Corpuscular Volume 93.6 fL (81-99); Mean Platelet Vol. 9.1 fl (6.2-12.0); Monocyte% 5.5 % (0-10); NRBC Flagged by Analyzer 0 % (0-5); Neutrophil # 6.62 X10^3/uL (2.7-7.7); Neutrophil % 72.9 % (47-70); Platelet Count 228 K/mm3 (150-450); RBC Distribution Width CV 12.7 % (11.6-14.6); RBC Distribution Width SD 43.8 fl (35.1-43.9); Red Blood Count 3.59 M/mm3 (4.2-5.4); White Blood Count 9.1 K/mm3 (4.4-11.0)
[2021-10-26 17:15] LABS: Amphetamine Urine VISTA NEGATIVE (<1000 ng/mL); Barbiturate Urine VISTA NEGATIVE (< 200 ng/mL); Benzodiazepine Urine VISTA NEGATIVE (< 200 ng/mL); Cocaine Urine VISTA NEGATIVE (< 300 ng/mL); Ecstacy Urine VISTA NEGATIVE (< 500 ng/mL); Methadone Urine VISTA NEGATIVE (< 300 ng/mL); PCP Urine VISTA NEGATIVE (< 25 ng/mL); THC Urine VISTA NEGATIVE (< 50 ng/mL); Vista UDS pH Range 6
[2021-10-27 08:20] LABS: HIV - WCH Non-Reactive (Nonreactive); Hepatitis B Surface Antigen Non-Reactive (Nonreactive); Hepatitis C Antibody Non-Reactive (Nonreactive); Rubella IgG Reactive (Nonreactive); Syphilis Antibodies Non-reactive
== END 2021-10-26 23:59 | disposition home or self-care (01) ==
PROVIDERS: PCP Family Medicine; Referring Provider Obstetrics & Gynecology; Visit Provider Obstetrics & Gynecology
DX: O09.90 Supervision of high risk pregnancy, unspecified, unspecified trimester (principal)
CPT/HCPCS: 36415; 80307; 85025; 86703; 86762; 86780; 86803; 86850; 86900; 86901; 87077; 87086; 87088; 87340

== ENCOUNTER 2021-10-26 16:37 | Outpatient (CLI) | payer BC, MEDICAID, SELFPAY ==
[2021-10-28 22:07] LABS: Chlamydia By Nucleic Acid AMP Negative (Negative)
[2021-10-29 12:50] LABS: Gonococcus By Nucleic Acid AMP Negative (Negative)
== END 2021-10-26 23:59 | disposition home or self-care (01) ==
LOC: LABSPEC 16:39
PROVIDERS: PCP Family Medicine; Referring Provider Obstetrics & Gynecology; Visit Provider Obstetrics & Gynecology
DX: O09.90 Supervision of high risk pregnancy, unspecified, unspecified trimester (principal)
CPT/HCPCS: 87491; 87591

== ENCOUNTER 2022-02-08 11:16 | Day surgery (SDC) | payer MEDICAID, SELFPAY ==
--- NOTE | 2022-02-03 15:51 | EKG12_ITS ---
Test Reason : PRE-OP Blood Pressure : / mmHG Vent. Rate : 058 BPM Atrial Rate : 058 BPM P-R Int : 164 ms QRS Dur : 096 ms QT Int : 442 ms P-R-T Axes : 055 050 054 degrees QTc Int : 433 ms Sinus bradycardia Otherwise normal ECG Confirmed by SHEELA ARMIJO, MAY ([id number]), loan expeditor JAVI BRENNER ([id number]) on 02/04/2022 11:27:18 AM Referred By: Mulu Jessica Confirmed By:MAY COKER MD
[2022-02-03 17:05] LABS: Partial Thromboplast Time 28.8 Seconds (24.1-36.2); Prothrombin Time (Protime)PT. 12.7 SECONDS (11.7-14.9)
[2022-02-03 17:07] LABS: Absolute Lymphocyte Count 2.11 X10^3/uL (0.83-4.51); Absolute Neutrophil Count 4.2 X10^3/uL (2.0-7.7); Basophil# 0.06 X10^3/uL; Basophil% 0.9 % (0-1); Eosinophil# 0.23 X10^3/uL; Eosinophils% 3.3 % (0-5); Hematocrit 35.9 % (37-47); Lymphocyte # 2.11 X10^3/ul (0.83-4.51); Lymphocyte % 30.1 % (19-41); Mean Corp Hgb Conc 33.4 g/dL (32-36); Mean Corpuscular Hgb 32.3 pg (27.0-32.0); Mean Corpuscular Volume 96.8 fL (81-99); Monocyte# 0.42 X10^3/uL; NRBC Flagged by Analyzer 0 % (0-5); Neutrophil # 4.17 X10^3/uL (2.7-7.7); Neutrophil % 59.4 % (47-70); Platelet Count 260 K/mm3 (150-450); RBC Distribution Width CV 12.3 % (11.6-14.6); RBC Distribution Width SD 43.7 fl (35.1-43.9); Red Blood Count 3.71 M/mm3 (4.2-5.4)
[2022-02-03 17:15] LABS: AST(SGOT) 9 U/L (15-37); Alanine Aminotransfer ALT/SGPT 22 U/L (13-56); Albumin, Serum 3.8 g/dL (3.2-5.0); Alkaline Phosphatase 64 U/L (45-117); Bilirubin, Direct 0.11 mg/dL (0.00-0.30); Protein, Total 6.8 g/dL (6.4-8.2)
[2022-02-08] VITALS (7 sets, daily range): BP systolic 115–128; BP diastolic 66–77; PULSE 46–67; RESP 16; TEMP 36.6–36.7; O2SAT 92–100; BMI 24.7
--- NOTE | 2022-02-08 | FALS_PTH ---
PATIENT: CLINTON AGUILLON LOC: [facility] – [place] U#:[id number] AGE/SX: 37/F ROOM: RE02/08/[address]: Dr. Mulu Jessica DO : 1985 BED: DIS: 02/08/2022 SPEC #: [id number] RECD: 02/09/22 07:39 STATUS: DIANDRA LEVI #: [id number] ROBERTO: 02/08/22 00:[address]: Mulu Jessica DEPT: SURGICAL PATHOLOGY RECD BY: Matthew Shultz ENTERED: 02/09/22 07:39 SP TYPE: FALL TUBES OTHR DR: Dr. Zay Le MD Tissues: Fallopian tube Procedures: Surgery Specimen Level II Surgery Specimen Level IV HEADER OPERATION: Laparoscopic salpingectomy PRE-OP DIAGNOSIS: Sterilization TISSUE SUBMITTED: Bilateral fallopian tubes MICROSCOPIC DIAGNOSIS Right and left fallopian tubes, bilateral salpingectomies: Complete cross-sections of fallopian tubes. Benign paratubal cyst. AM:jennifer 02/10/2022 MICROSCOPIC DESCRIPTION Slides are reviewed. GROSS DESCRIPTION Received in fixative is one container labeled with the patient's name and designated bilateral fallopian tubes. The specimen consists of bilateral fallopian tubes including fimbrial ends each measuring 5.5 cm in length and 0.5 cm in diameter. The fallopian tubes are not identified as right or left. One of the fallopian tubes show a paratubal cyst measuring 1 cm in greatest dimension. Sections reveal unremarkable cut surfaces. Spike Machine Operator sections are submitted in two cassettes as follows: 1 - one fallopian tube and paratubal cyst, 2 - second fallopian tube. / SJ:jennifer 02/09/2022 TC: CPT: 30554, 42450
--- NOTE | 2022-02-08 09:43 | PCM.HP.BLA ---
History and Physical Date of Admission: 02/08/22 R#: [id number] Acct: [id number] Name:CLINTON DANIEL Rep #: [id number] : 1985 ? ? Provider: Dr. Mulu Jessica, DO Age/Sex:? 37/F ? ? [place] [facility] [place]: Signed Intake Vital Signs ? 02/02/2211:58 02/02/2211:58 Height 5 ft 6 in 5 ft 6 in Weight: 161 lb ? BMI 25.9 ? BP 102/70 ? Intake Visit Reasons:?BS Financial Recruiter Required: No Is patient in pain?: No Allergies No Known Allergies Allergy (Verified 02/02/22 11:58) Medications sertraline 50 mg tablet (Zoloft) 50 mg PO DAILY #30 tabs 12/30/21 [Rx Confirmed 02/02/22] Post menopausal: No Patient : No : No PFSH Medical History? Alcohol use Anxiety Back pain C. difficile colitis Diarrhea Easy bruising Heartburn Migraine headache Shortness of breath on exertion Smoker Sterilization Syncope Wears contact lenses Surgical History? H/O colonoscopy History of loop electrical excision procedure (LEEP) Family History? Mother DiabetesGrandmother Heart disease Social History? adopted:? No household members:? children number of children:? 2 current occupational status:? 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 Yes pets and animals: dog(s) Smoking Status:? Light Smoker (<10/day) alcohol intake:? current details:? social; avoid with substance use type:? does not use caffeine:? Yes seatbelt use:? always do you feel safe at home:? Yes additional social history:? distributing HPI BS Details: Details: CLINTON AGUILLON is a 36 year old who presents for discussion about request for tubal ligation. She is status post elective termination of an early first trimester and states that she is very sad that she had no other options but does not want to have to ever make that decision again. She is requesting permanent sterilization. Pregancy History ? ? ? 3 ? Elective abortions ? ? ? 1 Hx Para ? ? ? 2 ? Spontaneous abortions ? Hx # Term Pregnancies ? Ectopic pregnancies ? Hx # Pregnancies ? Multiple births ? # of living children ? ? ? 2 Past Pregnancies Del. Date Name GA/Weeks Outcome Route Bth Weight Infant Gen Labor Lgth Anesthesia Del Locatn Provider FOB 06/09/05 Al[place] 41 live - full term 7# 1oz Female ? epidural [facility] Sigrid Wen 12/21/06 Emanuel 39 live - full term 8# 8 Male ? epidural [facility] Anderson Wen ROS Const ROS Unobtainable: All systems reviewed & are unremarkable except as noted in H Resp Resp: Reports system reviewed and no additional complaints, except as documented; Denies cough GI GI: Reports as per HPI Psych Psych: Reports system reviewed and no additional complaints, except as documented Exam Const General: cooperative, healthy appearing, comfortable and no acute distress Resp Effort & Inspection: normal respiratory effort Skin General: no rashes or lesions noted Psych Appearance: grossly normal Speech and Movement: speech and movement normal Coding Level of Care Code Off vis,est,level 4 Diagnoses Depression? F32.A Sterilization? Z30.2 Assessment and Plan Assessment and Plan (1) Depression: ?Status:?Acute (2) Sterilization: ?Status:?Acute ?Comment: title 19 signed 12/30/21 ?Plan: After discussing the patient's diagnosis and treatment plan options, patient wishes to proceed with surgical management.? I have discussed with the patient the risks, benefits, and alternatives of the procedure which include but are not limited to risks of anesthesia, bleeding, infection, possible damage to bowel, bladder, or surrounding vasculature which could lead to additional surgery to evaluate any complications.? Patient agrees to procedure and wishes to proceed.? ACOG/uptodate references given for additional information regarding procedure.? plan for laparoscopic bilateral salpingectomy. UPDATE- I have seen the patient and performed any clinically relevant updates to the history and physical exam. Mulu Jessica DO
[2022-02-08] MEDS: Lactated Ringers 1,000 ML 125 ML IV (11:35)
[2022-02-08 11:59] LABS: Internal QC Validated? YES +Cl - CLEAR BKGD; Pregnancy, Urine Negative Negative
[2022-02-08] MEDS: Lactated Ringers 1,000 ML 75 ML IV (12:00)
--- NOTE | 2022-02-08 12:02 | DCINST_ITS ---
Discharge Instructions Diet Discharge Diet: No restrictions Activity Discharge Activity: Return to Normal Activity, May Not Drive (for two weeks or while taking narcotic pain medications.), May Shower and May Take a Tub Bath (in 7 days) May resume sexual activity in: 1 week Weight Bearing Status: Full weight bearing Dressing / Incision Call your doctor if you observe: Using more than 1 pad per hour, Shortness of breath, Chest pain and Uncontrolled pain Suture Line Care: Avoid Pulling/Pushing and Avoid Pinching/Bending Remove Dressing in: 1 week (if present) Cleanse incision/area with: Soap & Water and Keep Dressing Clean & Dry Follow Up Care Please Follow Up With: Mulu Jessica DO When: Call to make an appointment with your doctor for a follow up incision check in 1-2 weeks. Test Results: Test results from this visit will be discussed in further detail at your follow- up appointment, if applicable. Discharge Plan Admission Primary Reason for Your Visit: laparoscopic bilateral salpingectomy (Removal of fallopian tubes) Attending Provider: Mulu Jessica Primary Care Provider: Zay Le Discharge Orders/Prescriptions Prescriptions: New ibuprofen 600 mg tablet 600 mg PO Q6H PRN (Reason: pain) 7 Days Qty: 28 0RF Rx Instructions: one tab every 6 hrs as needed for mild to moderate pain oxycodone-acetaminophen [Percocet] 5-325 mg tablet 1 tab PO Q6H PRN (Reason: pain) 3 Days Qty: 7 0RF Continued sertraline [Zoloft] 50 mg tablet 50 mg PO DAILY Qty: 30 12RF Referrals / Follow Up: Zay Le MD [Primary Care Provider] - Disposition Disposition (needs filled in before D/C Order can be placed): Home, Self Care
[2022-02-08] MEDS: Bupivacaine Mpf 0.5% 30 ML VIAL (12:55)
--- NOTE | 2022-02-08 13:09 | PCM.OP.BLANK ---
Problems Associated Problem List Diagnoses (1) Sterilization: Operative Report Date of Procedure: 02/08/22 preoperative diagnosis: desires permanent sterilization Postoperative diagnosis: Desires permanent sterilization Procedure: Laparoscopic bilateral salpingectomy Surgeon: Dr. Mulu Jessica DO Pressure Tank Operator: Mireya Carrion Estimated blood loss: 5 cc Urine output: 200 cc Fluids: 1300 cc Details of the procedure: Patient was brought to the operating room where general anesthesia was found to be adequate. She was prepped and draped in the normal sterile fashion her legs were placed in stirrups a weighted speculum was placed in the vagina. The anterior lip of the cervix was grasped with a single-tooth tenaculum. The uterus was sounded to 12 cm. A uterine manipulator was inserted without difficulty. The speculum was removed and gloves were changed. Attention was turned towards the abdomen. 0.75% Marcaine was injected into the umbilicus and a 5 mm incision was made with an 11 blade scalpel. A 5 mm trocar was inserted into the abdomen under direct visualization using the 5 mm laparoscope. A left lower quadrant 5 mm incision was also made followed by insertion of a 5 mm trocar. Approximately 5 cm above the pubic symphysis in the midline after Marcaine injection a mini grasper and was inserted into the abdomen under direct visualization. The uterus was elevated and manipulated to the right side the left fallopian tube was first grasped with a mini grasper and the underlying mesosalpinx was cauterized and cut to the level of the cornua using the LigaSure device. The fallopian tube was removed through the trocar. The same procedure was performed on the right side. both fallopian tubes were passed off for pathology analysis. Excellent hemostasis was noted at all operative sites. All instruments were removed from the abdomen and CO2 gas was escape from the abdomen. The skin was closed with a 4-0 Monocryl subcuticular stitch and sealed with surgical glue. The vaginal manipulator was removed and a vaginal sweep was performed no foreign objects were left in the vagina. The patient tolerated the procedure well sponge lap needle counts were correct x2 and she is now being brought to the recovery room in stable condition Complications: None Multi Select Codes Urinary/Genital Urinary/Genital CPT Codes: 61788 Laproscopic BS/O
== END 2022-02-08 14:43 | disposition home or self-care (01) ==
LOC: SDC 11:17 → AC 11:18
PROVIDERS: Anesthesiology; PCP Family Medicine; Referring Provider Obstetrics & Gynecology; Visit Provider Obstetrics & Gynecology
PROC: (CPT 58661; principal; 2022-02-08 13:00)
DX: Z30.2 Encounter for sterilization (principal); F32.A Depression, unspecified; F41.9 Anxiety disorder, unspecified; F17.200 Nicotine dependence, unspecified, uncomplicated; Z79.899 Other long term (current) drug therapy
CPT/HCPCS: 58661; 36415; 80076; 81025; 85025; 85610; 85730; 86850; 86900; 86901; 88302; 88305; 93005; J7120; J2405

== ENCOUNTER → 2022-10-24 | Outpatient (CLI) | payer BC, MEDICAID, SELFPAY ==
--- NOTE | 2022-10-24 14:18 | NEURO_ITS ---
NCS and/or EMG Patient Report Ordering Doctor: Gabriella Manning NP DATE OF SERVICE: 10/24/22 Indication: Several years of bilateral hand pain, burning, tightness in both hands (digits 1-4). Symptoms fluctuate with activity, worst with sleep, driving and using tools. Evaluate for entrapment neuropathy. Findings: Nerve conduction studies were performed in the right and left upper extremities. The right median motor study recording the abductor pollicis brevis showed a normal amplitude, prolonged distal latency and slowed conduction velocity. The right ulnar motor study recording the abductor digiti minimi showed a normal amplitude, normal distal latency and normal conduction velocity. No conduction block or focal slowing was present across the elbow. The right median sensory response recording digit two showed a reduced amplitude, prolonged latency and markedly slowed conduction velocity. The right ulnar sensory response recording digit five showed a normal amplitude, latency and conduction velocity. The right radial sensory response recording over the extensor snuff box showed a normal amplitude, latency and conduction velocity. The left median motor study recording the abductor pollicis brevis showed a normal amplitude, prolonged distal latency and slowed conduction velocity. The left ulnar motor study recording the abductor digiti minimi showed a normal amplitude, normal distal latency and normal conduction velocity. No conduction block or focal slowing was present across the elbow. The left median sensory response recording digit two showed a normal amplitude, prolonged latency and slowed conduction velocity. The left ulnar sensory response recording digit five showed a normal amplitude, latency and conduction velocity. The left radial sensory response recording over the extensor snuff box showed a normal amplitude, latency and conduction velocity. Left median-ulnar lumbrical / interosseous motor latencies showed a prolonged median latency compared to the ulnar. Needle EMG of the right upper extremity and cervical paraspinal muscles was performed. No denervation was seen in any muscle. All motor unit morphology, activation and recruitment patterns were normal. Needle EMG of the left upper extremity was omitted given the symmetry of symptoms and the paucity of finding in the right upper extremity. Impression: This is an abnormal study. There is electrophysiologic evidence of a mild median neuropathy across both wrists (mild on the right, very mild on the left). The pathophysiology is demyelinating with evidence of slight secondary sensory axon loss on the right. These findings are compatible with the clinical diagnosis of bilateral carpal tunnel syndrome. In addition, there is no electrophysiologic evidence of superimposed cervical radiculopathy in the right upper extremity. Jin Melendez D.O. Multi Select Codes Neurology Neurology Interp Codes: 50036-70 [facility] [place] done w/n test comp (interp) and 51393-07 [facility] test 11-12 studies (interp)
== END | disposition home or self-care (01) ==
PROVIDERS: PCP Family Medicine; Visit Provider Registered Nurse
DX: G56.03 Carpal tunnel syndrome, bilateral upper limbs (principal)
CPT/HCPCS: 95886; 95912

== ENCOUNTER → 2024-09-26 | Outpatient (CLI) | payer BC, SELFPAY ==
--- NOTE | 2024-09-26 14:31 | BI_ITS ---
PROCEDURE: SCRN MAMM (CAD)W/MAHSA BILAT REASON FOR EXAM: F, Age 39 y/o, no family history. Routine mammogram. TECHNIQUE: Bilateral screening digital breast tomosynthesis with 2D and 3D images. Computer aided detection. COMPARISON: Baseline study. FINDINGS: The breasts are heterogeneously dense which may obscure small masses. No suspicious masses, areas of developing architectural distortion, or suspicious calcifications. BI/SCRN MAMM (CAD)W/MAHSA BILAT IMPRESSION: BI-RADS 1: NEGATIVE. RECOMMEND ANNUAL MAMMOGRAPHIC SCREENING. Follow-up code: Routine Follow-up The patient will be notified of the results by letter. Reading Location: [place] [id number]
== END | disposition home or self-care (01) ==
LOC: OPBI 14:30
PROVIDERS: PCP Family Medicine; Referring Provider Nurse Practitioner Women's Health; Visit Provider Nurse Practitioner Women's Health
DX: Z12.31 Encounter for screening mammogram for malignant neoplasm of breast (principal)
CPT/HCPCS: 77063; 77067

== ENCOUNTER → 2024-10-01 | Outpatient (CLI) | payer BC, SELFPAY ==
[2024-10-01 17:07] LABS: Absolute Lymphocyte Count 1.82 X10^3/uL (0.83-4.51); Absolute Neutrophil Count 3.9 X10^3/uL (2.0-7.7); Basophil# 0.04 X10^3/uL; Basophil% 0.6 % (0-1); Eosinophil# 0.14 X10^3/uL; Eosinophils% 2.2 % (0-5); Hematocrit 38.3 % (37-47); Hemoglobin 12.3 g/dL (12.0-15.0); Lymphocyte # 1.82 X10^3/ul (0.83-4.51); Lymphocyte % 28.6 % (19-41); Mean Corp Hgb Conc 32.1 g/dL (32-36); Mean Corpuscular Hgb 30.1 pg (27.0-32.0); Mean Corpuscular Volume 93.9 fL (81-99); Mean Platelet Vol. 9.8 fl (6.2-12.0); Monocyte# 0.42 X10^3/uL; Monocyte% 6.6 % (0-10); NRBC Flagged by Analyzer 0 % (0-5); Neutrophil # 3.92 X10^3/uL (2.7-7.7); Neutrophil % 61.7 % (47-70); Platelet Count 239 K/mm3 (150-450); RBC Distribution Width CV 12.6 % (11.6-14.6); RBC Distribution Width SD 43.5 fl (35.1-43.9); Red Blood Count 4.08 M/mm3 (4.2-5.4); White Blood Count 6.4 K/mm3 (4.4-11.0)
[2024-10-01 17:26] LABS: ALB/GLOB Ratio 1.3 RATIO (0.9-2.4); AST(SGOT) 9 U/L (15-37); Alanine Aminotransfer ALT/SGPT 19 U/L (13-56); Alkaline Phosphatase 61 U/L (45-117); Anion Gap 5 (5-15); BUN 11 mg/dL (7-18); BUN/Creat Ratio 15.4 RATIO (10-20); Calcium,Total 9.5 mg/dL (8.5-10.1); Chloride 105 mmol/L (98-107); Creatinine, Serum 0.71 mg/dL (0.55-1.02); EST Glomerular Filtration Rate 96 mL/min (>60); Est Glom Filt Rate - Afr Amer 116 mL/min (>60); Globulin 3.1 g/dL (2.2-4.2); Glucose 84 mg/dL (74-106); Potassium 3.4 mmol/L (3.5-5.1); Protein, Total 7.1 g/dL (6.4-8.2); Sodium Level 139 mmol/L (136-145); T4 Free Direct 0.81 ng/dL (0.76-1.46)
[2024-10-01 18:11] LABS: HIV - WCH Non-Reactive (Nonreactive)
[2024-10-02 14:34] LABS: Hepatitis C Antibody Non-Reactive (Nonreactive); Syphilis Antibodies Non-reactive
[2024-10-03 15:19] LABS: Vitamin D,25 Hydroxy 35.5 ng/mL
[2024-10-04 04:07] LABS: Chlamydia By Nucleic Acid AMP Negative (Negative); Gonococcus By Nucleic Acid AMP Negative (Negative); Thyroid Peroxidase AB < 9 IU/mL (0-34)
== END | disposition home or self-care (01) ==
LOC: BWCLAB 15:13
PROVIDERS: PCP Family Medicine; Referring Provider Nurse Practitioner Women's Health; Visit Provider Nurse Practitioner Women's Health
DX: Z13.21 Encounter for screening for nutritional disorder (principal); Z13.29 Encounter for screening for other suspected endocrine disorder; Z20.2 Contact with and (suspected) exposure to infections with a predominantly sexual mode of transmission; G47.9 Sleep disorder, unspecified
CPT/HCPCS: 36415; 80053; 82306; 84439; 84443; 85025; 86376; 86695; 86696; 86703; 86780; 86803; 87491; 87591